=== PATIENT | female | born 1995 | race Two or more races ===

== ENCOUNTER 2020-02-24 10:53 | Emergency (ER) | payer MEDICAID ==
[~2020-02-24] VITALS: Ht 152.4 cm; Wt 58.0 kg
[2020-02-24 11:01] VITALS: BP 109/73
== END 2020-02-24 11:14 | disposition home or self-care (01) ==
LOC: ER 10:53
DX: O98.513 Other viral diseases complicating pregnancy, third trimester (principal); U07.1 COVID-19; O26.893 Other specified pregnancy related conditions, third trimester; J45.909 Unspecified asthma, uncomplicated; Z3A.37 37 weeks gestation of pregnancy
CPT/HCPCS: 87635; 99283; C9803

== ENCOUNTER 2020-02-28 00:24 | Inpatient (IN) | payer MEDICAID ==
[~2020-02-28] VITALS: Ht 152.4 cm; Wt 59.0 kg
[2020-02-28] MEDS ORDERED: PNV1TABL76 PO (01:05)
[2020-02-28] MEDS ORDERED: DEXT 5%/LR + PITOCIN 20UNITS/L 1,000 ML IV SCH (01:15)
[2020-02-28] MEDS ORDERED: CARBOPROST TROMETHAMINE 250 MCG/ML AMPUL IM PRN (01:15)
[2020-02-28] MEDS ORDERED: BUTORPHANOL TARTRATE 2 MG/ML VIAL IV PRN (01:15)
[2020-02-28] MEDS ORDERED: METHYLERGONOVINE MALEATE 0.2 MG/ML IM PRN (01:15)
[2020-02-28] MEDS ORDERED: NALOXONE HCL 0.4 MG/ML 1ML VIAL IM PRN (01:15)
[2020-02-28] MEDS ORDERED: LIDOCAINE HCL 1% 20ML VIAL (Pyxis) INJ INFIL SCH (01:15)
[2020-02-28] MEDS ORDERED: AMPICILLIN 2GM in NS 100ML 100 ML IV NR (01:30)
[2020-02-28 01:45] LABS: BASOPHILS % 0.5 % (0.0-2.0); EOSINOPHILS % 1.7 % (0.0-5.0); HEMATOCRIT. 37.8 % (36.0-48.0); HEMOGLOBIN. 13.1 g/dL (12.0-16.0); LYMPHOCYTES % 21.3 % (20.0-50.0); MEAN CORPUSCULAR HEMOGLOBIN 32.1 pg (28.0-32.0); MEAN PLATELET VOLUME 9.5 fl (7.4-10.4); MONOCYTES % 9.8 % (2.0-8.0); NEUTROPHILS % 66.7 % (40.0-76.0); PLATELET 172 x1000/uL (130-400); RED BLOOD CELL COUNT 4.07 mill/uL (4.2-5.4); RED CELL DISTRIBUTION WIDTH 12.8 % (11.6-14.6)
[2020-02-28 01:51] LABS: CLARITY URINE CLEAR (CLEAR); COLOR URINE YELLOW (YELLOW); KETONES URINE NEGATIVE (NEGATIVE); LEUKOCYTE ESTERASE URINE 2+ (NEGATIVE); NITRITE URINE NEGATIVE (NEGATIVE); OCCULT BLOOD URINE NEGATIVE (NEGATIVE); PH URINE 6.5 (4.5-8.0); PROTEIN URINE NEGATIVE (NEGATIVE); SPECIFIC GRAVITY URINE 1.009 (1.005-1.030); UROBILINOGEN URINE 0.2 E.U./dL (0.2-1.0)
[2020-02-28 02:07] LABS: *AMPHETAMINES SCREEN URINE NEGATIVE (NEGATIVE); *BARBITURATES SCREEN URINE NEGATIVE (NEGATIVE); *BENZODIAZEPINES SCREEN URINE NEGATIVE (NEGATIVE); *COCAINE SCREEN URINE NEGATIVE (NEGATIVE); CANNABINOID URINE SCREEN NEGATIVE (NEGATIVE); METHADONE URINE SCREEN NEGATIVE (NEGATIVE); OPIATES URINE SCREEN NEGATIVE (NEGATIVE); PHENCYCLIDINE URINE SCREEN NEGATIVE (NEGATIVE)
[2020-02-28 02:25] LABS: HEPATITIS B SURFACE ANTIGEN NEGATIVE
[2020-02-28 03:59] LABS: INR 0.9; PARTIAL THROMBOPLASTIN TIME 29.5 sec (23.4-31.0); PROTHROMBIN TIME 9.7 sec (9.6-11.0)
[2020-02-28] MEDS: LACTATED RINGERS 1,000 ML IV SCH (09:35)
[2020-02-28] MEDS: AMPICILLIN 1,000 MG in SODIUM CHLORIDE 0.9% 50 ML IV SCH ×3 (09:35→21:11)
[2020-02-28] MEDS ORDERED: ROPIVACAINE HCL/PF EPIDURAL 200 ML EPI SCH (10:00)
[2020-02-28] MEDS: MISOPROSTOL 100MCG TABLET VG SCH ×3 (12:01→20:36)
[2020-02-29] MEDS: LACTATED RINGERS 1,000 ML IV SCH ×2 (00:14→03:26)
[2020-02-29] MEDS: MISOPROSTOL 100MCG TABLET VG SCH (00:14)
[2020-02-29] MEDS: AMPICILLIN 1,000 MG in SODIUM CHLORIDE 0.9% 50 ML IV SCH ×3 (03:26→16:05)
[2020-02-29] MEDS ORDERED: BUTORPHANOL TARTRATE 2 MG/ML VIAL IV PRN (04:30)
[2020-02-29] MEDS ORDERED: NALOXONE HCL 0.4 MG/ML 1ML VIAL IM PRN (04:30)
[2020-02-29] MEDS ORDERED: LACTATED RINGERS 1,000 ML IV SCH (04:30)
[2020-02-29] MEDS ORDERED: DEXT 5%/LR + PITOCIN 20UNITS/L 1,000 ML IV SCH ×2 (04:30→18:00)
[2020-02-29] MEDS ORDERED: METHYLERGONOVINE MALEATE 0.2 MG/ML IM PRN (04:30)
[2020-02-29] MEDS ORDERED: CARBOPROST TROMETHAMINE 250 MCG/ML AMPUL IM PRN (04:30)
[2020-02-29] MEDS ORDERED: AMPICILLIN 1,000 MG in SODIUM CHLORIDE 0.9% 50 ML IV SCH (04:45)
[2020-02-29] MEDS ORDERED: MORPHINE SULFATE/PF 1MG/ML 10ML AMP ONE (09:13)
[2020-02-29] MEDS ORDERED: FENTANYL CITRATE/PF 50MCG/ML 2ML VIAL ONE (09:13)
[2020-02-29] MEDS ORDERED: OXYTOCIN 10 UNITS/ML 1ML ONE (09:13)
[2020-02-29] MEDS ORDERED: CEFAZOLIN SODIUM 1000MG/VIAL ONE (09:14)
[2020-02-29] MEDS ORDERED: LIDOCAINE HCL 2%/EPINEPHRINE 1:100,000 20 ML VIAL INFIL ONE (10:00)
[2020-02-29] MEDS ORDERED: DEXT 5%/LACTATED RINGERS 1,000 ML IV SCH (15:45)
[2020-02-29] MEDS ORDERED: LIDOCAINE HCL 1% 20ML VIAL (Pyxis) INJ ONE (17:27)
[2020-02-29] MEDS ORDERED: RHO(D) IMMUNE GLOBULIN 300 MCG/SYR IM PRN (18:00)
[2020-02-29] MEDS ORDERED: BENZOCAINE/LANOLIN/ALOE VERA SPRAY TOP PRN (18:00)
[2020-02-29] MEDS ORDERED: IBUPROFEN 400MG TABLET PO PRN (18:00)
[2020-02-29 19:30] VITALS: BP 109/68
[2020-02-29] MEDS: IBUPROFEN 800MG TABLET PO PRN (21:05)
[2020-03-01 04:00] VITALS: BP 100/63
[2020-03-01] MEDS: IBUPROFEN 800MG TABLET PO PRN ×3 (04:48→16:17)
[2020-03-01 07:40] LABS: BASOPHILS % 0.2 % (0.0-2.0); EOSINOPHILS % 0.3 % (0.0-5.0); HEMATOCRIT. 30.3 % (36.0-48.0); HEMOGLOBIN. 10.4 g/dL (12.0-16.0); LYMPHOCYTES % 12.9 % (20.0-50.0); MEAN CORPUSCULAR HEMOGLOBIN 32.5 pg (28.0-32.0); MEAN CORPUSCULAR VOLUME 94.5 fL (81.0-99.0); MEAN PLATELET VOLUME 9.4 fl (7.4-10.4); MONOCYTES % 9.8 % (2.0-8.0); NEUTROPHILS % 76.8 % (40.0-76.0); PLATELET 144 x1000/uL (130-400); RED CELL DISTRIBUTION WIDTH 12.6 % (11.6-14.6)
[2020-03-01 07:45] VITALS: BP 102/65
[2020-03-01 14:00] VITALS: BP 102/64
== END 2020-03-01 18:25 | disposition home or self-care (01) | DRG 560 ==
LOC: L&D 00:24 → OBSVTOIN 00:24 → 8 EST LDRP 12:00
PROVIDERS: ADMIT Obstetrics & Gynecology; ATTEND Obstetrics & Gynecology
PROC: 3E0P7VZ Introduction of Hormone into Female Reproductive, Via Natural or Artificial Opening (ICD-10-PCS; 2020-02-28)
PROC: 10E0XZZ Delivery of Products of Conception, External Approach (ICD-10-PCS; principal; 2020-02-29)
PROC: 0W8NXZZ Division of Female Perineum, External Approach (ICD-10-PCS; 2020-02-29)
PROC: 3E0R3BZ Introduction of Anesthetic Agent into Spinal Canal, Percutaneous Approach (ICD-10-PCS; 2020-02-29)
PROC: 00HU33Z Insertion of Infusion Device into Spinal Canal, Percutaneous Approach (ICD-10-PCS; 2020-02-29)
DX: O26.62 Liver and biliary tract disorders in childbirth (principal); O98.52 Other viral diseases complicating childbirth; U07.1 COVID-19; K83.1 Obstruction of bile duct; O99.52 Diseases of the respiratory system complicating childbirth; J45.909 Unspecified asthma, uncomplicated; Z3A.37 37 weeks gestation of pregnancy; Z37.0 Single live birth; Z83.3 Family history of diabetes mellitus
CPT/HCPCS: 36415; 80305; 81003; 85025; 86592; 86703; 86762; 86850; 86900; 87340; G0378; J0290; J0595; J0690; J2274; J2590; J2795; J3010; J3490; J7120; J7121